=== PATIENT | male | born 1975 | race Caucasian/White ===

== ENCOUNTER 2018-07-25 04:32 | Emergency (ER) | payer OTHER ==
[2018-07-25 05:49] LABS: ANION GAP 10 (5-19); BLOOD UREA NITROGEN 18 mg/dL (7-20); CALCIUM 9.2 mg/dL (8.4-10.2); CARBON DIOXIDE 27 mmol/L (22-30); CHLORIDE 104 mmol/L (98-107); GLUCOSE 97 mg/dL (75-110); POTASSIUM 3.9 mmol/L (3.6-5.0); SODIUM 141.4 mmol/L (137-145)
--- NOTE | 2018-07-25 05:54 | ER Document Report ---
ED General - General Chief Complaint: Carbon Monoxide Exposure Stated Complaint: POSSIBLE CO EXPOSURE Time Seen by Provider: 07/25/18 04:51 Notes: Patient is a 42-year-old male presents with complaint of exposure to carbon monoxide at the hotel. Patient says that he had a headache, he felt very lightheaded and dizzy. He thinks he did syncopized once. He has some nausea but did not vomit. He is a smoker. He has no other chronic medical problems. He says he is feeling some better since leaving the hotel being placed on oxygen. No other complaints at this time. - Related Data Allergies/Adverse Reactions: No Known Allergies Allergy (Verified 07/25/18 05:18) Past Medical History - Social History Smoking Status: Current Every Day Smoker Chew tobacco use (# tins/day): No Frequency of alcohol use: Heavy Drug Abuse: None Family History: Reviewed & Not Pertinent Patient has suicidal ideation: No Patient has homicidal ideation: No Renal/ Medical History: Denies: Hx Peritoneal Dialysis Review of Systems - Review of Systems Notes: My Normal Review Basic REVIEW OF SYSTEMS: CONSTITUTIONAL : Denies fever, chills, or sweats. Denies recent illness. EENT: Denies eye, ear, throat, or mouth pain or symptoms. Denies nasal or sinus congestion. CARDIOVASCULAR: Denies chest pain. RESPIRATORY: Mild shortness of breath. GASTROINTESTINAL: Denies abdominal pain. Nausea no vomiting. MUSCULOSKELETAL: Denies neck or back pain or joint pain or swelling. SKIN: Denies rash or skin lesions. NEUROLOGICAL: Had brief loss of consciousness. Has a headache. [place] weak. ALL OTHER SYSTEMS REVIEWED AND NEGATIVE. Physical Exam - Vital signs Vitals: Temp Pulse Resp BP Pulse Ox 97.8 F 90 16 132/87 H 97 07/25/18 05:00 07/25/18 05:00 07/25/18 05:00 07/25/18 05:00 07/25/18 05:00 - Notes Notes: General Appearance: Well nourished, alert, cooperative, no acute distress, no obvious discomfort. Vitals: reviewed, See vital signs table. Head: no swelling or tenderness to the head Eyes: PERRL, EOMI, Conjuctiva clear Mouth: No decreasd moisture Lungs: No wheezing, No rales, No rhonci, No accessory muscle use, good air exchange bilaterally. Heart: Normal rate, Regular rythm, No murmur, no rub Extremities: strength 5/5 in all extremities, good pulses in all extremities no edema. Neuro: speech clear, oriented x 3, normal affect, responds appropriately to questions. Cranial nerves II through XII are intact. Patient moves all extremities without difficulty. Course - Re-evaluation Re-evalutation: 07/25/18 07:12 Reevaluation patient still has some headache but he started feel better. I took off the nonrebreather. According to our car monoxide reader his level is now 10%. This is acceptable being that he is a chronic smoker. Says he still feels little lightheaded but is able to walk without ataxia. I will check a venous blood gas just to make sure he did not start retaining large amount of CO2 being that he is on nonrebreather and does have a chronic smoking and probably has underlying COPD. 07/25/18 08:00 Blood gases normal-appearing. CO2 level is negative. I did recheck her blood hypoxemic on the level and has had 7.9. He looks well. Is able stand and walk on his own power. He does not have any ataxia. He has normal coordination of movements. I feel he safe to be discharged home. Informed him and his friend that he must return to ER immediately if he has severe headaches, any difficulty walking, vomiting, or if he feels that he is worsening in any way. Patient and friend agree with plan and he will be discharged home. Dictation of this chart was performed using voice recognition software; therefore, there may be some unintended grammatical errors. - Vital Signs Vital signs: Temp Pulse Resp BP Pulse Ox 97.8 F 70 16 126/74 H 98 07/25/18 07:40 07/25/18 07:40 07/25/18 07:40 07/25/18 07:40 07/25/18 07:40 - Laboratory Result Diagrams: 07/25/18 04:50 Laboratory results interpreted by me: 07/25/18 07/25/18 04:50 07:30 Carboxyhemoglobin 25.0 H 7.9 H Discharge - Discharge Clinical Impression: Carbon monoxide poisoning Qualifiers: Encounter type: initial encounter Injury intent: accidental or unintentional Qualified Code(s): T58.91XA - Toxic effect of carbon monoxide from unspecified source, accidental (unintentional), initial encounter Additional Instructions: Tonight you were exposed to carbon monoxide which caused you to have the headaches and nausea and feel very unwell. Fortunately your carbon monoxide level has improved. I did print off a copy of your labs for you. Please rest over the next 24 hours. 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 Do not exert yourself. Please drink lots of liquids. Please return to ER immediately if you have recurrent headaches, difficulty walking, worsening weakness, or feel that you are worsening any way. Please try to avoid smoking as this will cause carbon monoxide to reaccumulate in your blood. Follow up with a doctor on Saturday for reevaluation.
[2018-07-25 07:41] VITALS: BP 126/74
[2018-07-25 07:45] LABS: VENOUS BLOOD BASE EXCESS 1.6 mmol/L; VENOUS BLOOD HCO3 26.7 mmol/L (20-32); VENOUS BLOOD PCO2 43.6 mmHg (35-63); VENOUS BLOOD PH 7.41 (7.30-7.42)
== END 2018-07-25 08:00 | disposition home or self-care (01) ==
LOC: ER 04:32
DX: T58.91XA Toxic effect of carbon monoxide from unspecified source, accidental (unintentional), initial encounter (principal); R51 Headache; R42 Dizziness and giddiness; R11.0 Nausea; X58.XXXA Exposure to other specified factors, initial encounter; F17.200 Nicotine dependence, unspecified, uncomplicated
CPT/HCPCS: 36415; 80048; 82375; 82803; 99284